=== PATIENT | female | born 2000 ===

== ENCOUNTER 2025-06-14 03:35 | Outpatient (CLI) | payer OTHER, SELFPAY ==
--- NOTE | 2025-06-14 | DI.MRI_ITS ---
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 CONTRAST MATERIAL: IV Contrast: 20 mL of Dotarem contrast administered. COMPARISON: CT CT ABD/PELVIS W/ CONTRAST from 03/09/2024 MR MR ABDOMEN W/WO CONTRAST from 04/13/2025 FINDINGS: Urinary bladder: Unremarkable. There is no bladder wall thickening or intraluminal mass. Reproductive organs: Unremarkable. The ovaries are normal in size. Small follicular cysts are present. Lymph nodes: Unremarkable. No pelvic adenopathy is present. Peritoneum: There is no ascites. No suspicious masses are present. Bowel: There is no bowel wall thickening or obstruction visualized. Aorta, iliacs and proximal femoral arteries: Unremarkable. Soft Tissues: Unremarkable. Bone: Unremarkable. Enhancement: No suspicious enhancing masses are seen. IMPRESSION: 1. There is no evidence of a residual or recurrent disease. 2. No evidence of pelvic metastatic disease. DATA REPOSITORY:
[2025-06-14] MEDS: Gadoterate meglumine 20 ML SYRINGE IVP (12:26)
[2025-06-14] MEDS: Normal Saline Flush 10 ML SYR IVP (12:27)
== END 2025-06-14 03:55 ==
PROVIDERS: PCP Physician Assistant Medical; Visit Provider Internal Medicine Hematology & Oncology
DX: C7A.020 Malignant carcinoid tumor of the appendix (principal)
CPT/HCPCS: 72197